=== PATIENT | female | born 1985 ===

== ENCOUNTER 2017-06-05 06:45 | Emergency (ER) | payer MEDICAID ==
[2017-06-05 06:56] VITALS: RESP 18; TEMP 97.7
--- NOTE | 2017-06-05 07:26 | C.PDOC ---
History Of Present Illness 32 year old female complains of mild dull pressure like pain to lower abdomen for 12 days. She reports urinary frequency and notes urine is dark in color. She admits to constipation, last bowel movement was yesterday. Denies fever, vaginal discharge or bleeding, vomiting, diarrhea. Time Seen by Provider: 06/05/17 07:15 Chief Complaint (Nursing): Abdominal Pain History Per: Patient History/Exam Limitations: no limitations Onset/Duration Of Symptoms: Days Current Symptoms Are (Timing): Still Present Severity: Mild Location Of Pain/Discomfort: Suprapubic Radiation Of Pain To:: None Past Medical History Reviewed: Historical Data, Nursing Documentation, Vital Signs Vital Signs: Last Vital Signs Temp 97.7 F 06/05/17 06:52 Pulse 78 06/05/17 08:59 Resp 18 06/05/17 08:59 BP 102/65 06/05/17 08:59 Pulse Ox 98 06/05/17 08:59 - Medical History PMH: No Chronic Diseases Surgical History: No Surg Hx Family History: States: Unknown Family Hx - Social History Hx Alcohol Use: No Hx Substance Use: No - Immunization History Hx Tetanus Toxoid Vaccination: No Hx Influenza Vaccination: No Hx Pneumococcal Vaccination: No Review Of Systems Except As Marked, All Systems Reviewed And Found Negative. Gastrointestinal: Positive for: Abdominal Pain Physical Exam - Physical Exam Appears: Non-toxic, No Acute Distress Skin: Warm, Dry, No Rash Head: Atraumatic, Normacephalic Eye(s): bilateral: Normal Inspection Nose: Normal Oral Mucosa: Moist Neck: Normal ROM Chest: Symmetrical Cardiovascular: Rhythm Regular, No Murmur Respiratory: Normal Breath Sounds, No Wheezing Gastrointestinal/Abdominal: Bowel Sounds, Soft, Tenderness (mild tenderness to suprapubic region ), No Mass, No Distention, No Guarding Back: Normal Inspection, No CVA Tenderness, No Vertebral Tenderness, No Paraspinal Tenderness Extremity: Bilateral: Atraumatic, Normal Color And Temperature, Normal ROM Neurological/Psych: Oriented x3, Normal Speech ED Course And Treatment O2 Sat by Pulse Oximetry: 100 Medical Decision Making Medical Decision Making: Plan: * UA * UHCG * Urine Cx Progress: UA shows UTI. Cipro PO ordered Disposition Counseled Patient/Family Regarding: Diagnosis, Need For Followup, Rx Given - Disposition Disposition: HOME/ ROUTINE Disposition Time: 08:49 Condition: STABLE Additional Instructions: Leland yan mdico o la clnica en 2-5 santos sin falta, para mas evaluacin. Leslie los medicamentos whitney indicado. Volver a la mirta de emergencia en cualquier momento si los sntomas persisten o empeoran. Prescriptions: Ciprofloxacin [Cipro] 1 tab PO BID #14 tab Instructions: Urinary Tract Infection in Women (DC) Forms: [facility] (Malay) Print Language: NAMIBIAN - POA Present On Arrival: None - Clinical Impression Clinical Impression: UTI (urinary tract infection)
[2017-06-05 08:03] LABS: RBC URINE 2 /hpf (0-3); URINE BACTERIA RARE (<OCC); URINE BILIRUBIN NEGATIVE (NEGATIVE); URINE BLOOD NEGATIVE (NEGATIVE); URINE COLOR Yellow (YELLOW); URINE GLUCOSE (UA) NORMAL (Normal); URINE KETONE NEGATIVE (NEGATIVE); URINE LEUKOCYTE ESTERASE 1+ Leu/uL (Negative); URINE PROTEIN NEGATIVE (NEGATIVE); URINE UROBILINOGEN NORMAL mg/dL (0.2-1.0); WBC URINE 6 /hpf (0-5)
[2017-06-05 09:00] VITALS: BP 102/65; PULSE 78
[2017-06-05 09:10] VITALS: O2SAT 100
== END 2017-06-05 09:00 | disposition home or self-care (01) ==
LOC: C.ER 06:45
DX: N39.0 Urinary tract infection, site not specified (principal)